=== PATIENT | female | born 1995 | race Caucasian/White ===

== ENCOUNTER → 2018-04-02 10:31 | Outpatient (CLI) | payer OTHER, SELFPAY | PROVIDERS: Family Provider Family Medicine; PCP Family Medicine; Visit Provider Physician Assistant | DX: R39.9 Unspecified symptoms and signs involving the genitourinary system (principal) | CPT/HCPCS: 87077; 87086; 87186 ==

== ENCOUNTER → 2019-06-25 15:47 | Outpatient (CLI) | payer OTHER, SELFPAY ==
--- NOTE | 2019-06-25 | DI.US.S_ITS ---
PROCEDURE: US PELVIC COMPLETE INDICATIONS: ABDOMINAL PAIN AND BLOATING TECHNIQUE: Real-time scanning was performed of the pelvic organs, with image documentation. The patient could not tolerate the transvaginal probe. COMPARISON: None. FINDINGS: Transabdominal scanning: Limited scanning through the kidneys shows no hydronephrosis. No pathologic free abdominal or pelvic fluid. Endovaginal scanning: Uterus: Uterus is normal in size at 5.9 x 4.2 x 20 cm. The endometrial stripe is not well seen. Ovaries: The right ovary measures 2.5 x 1.4 x 1.4 cm. The left ovary measures 2 x 1.4 x 1.4 cm. The ovaries have a normal sonographic appearance. No adnexal masses are seen. IMPRESSION: Limited study demonstrating no masses. Dictated by: Bright Storey M.D. on 06/25/2019 at 16:16 Approved by: Bright Storey M.D. on 06/25/2019 at 16:17
== END ==
PROVIDERS: Family Provider Family Medicine; PCP Family Medicine; Referring Provider Family Medicine; Visit Provider Family Medicine
DX: R10.9 Unspecified abdominal pain (principal); R14.0 Abdominal distension (gaseous)
CPT/HCPCS: 76856

== ENCOUNTER → 2019-06-26 11:23 | Outpatient (CLI) | payer OTHER, SELFPAY ==
--- NOTE | 2019-06-26 | DI.US.S_ITS ---
PROCEDURE: US ABDOMEN COMPLETE INDICATIONS: ABDOMINAL PAIN TECHNIQUE: Real-time scanning was performed of the abdominal and retroperitoneal organs, with image documentation. COMPARISON: [facility], US, US PELVIC COMPLETE, 06/25/2019, 16:06. FINDINGS: Liver: Liver is normal in size and homogeneous in echotexture. A 7 mm echogenic focus can be seen within the left lobe of the liver. Gallbladder: No findings of gallstones or sludge are seen. The gallbladder wall is not thickened, measuring 3 mm or less. No specific pericholecystic fluid is seen. The sonographic Ferrer sign is negative. Biliary ducts: Intrahepatic bile ducts are non-dilated. Extrahepatic bile duct caliber measures 3 mm. Normal is 6-7 mm or less in diameter, or 10 mm or less post-cholecystectomy. Pancreas: Visualized portions of the pancreas are sonographically normal. Spleen: Spleen is normal in size and homogeneous in echotexture. Kidneys: Kidneys are normal in size and echotexture. Right kidney measures 10.5 cm long; left kidney measures 11.2 cm long. No hydronephrosis. There is an apparent nonobstructing 3-4 mm stone seen within the right kidney superiorly. No solid masses. Aorta: Visualized aorta is normal in caliber at less than 3 cm. Iliacs: Not seen. IVC: Intrahepatic inferior vena cava is patent. Miscellaneous: No free abdominal fluid. IMPRESSION: The gallbladder demonstrates a normal sonographic appearance. No biliary dilatation is seen. Likely 7 mm liver hemangioma. Apparent nonobstructing right renal stone. Dictated by: Bright Storey M.D. on 06/26/2019 at 12:35 Approved by: Bright Storey M.D. on 06/26/2019 at 12:36
== END ==
PROVIDERS: Family Provider Family Medicine; PCP Family Medicine; Referring Provider Family Medicine; Visit Provider Family Medicine
DX: R10.9 Unspecified abdominal pain (principal); N20.0 Calculus of kidney
CPT/HCPCS: 76700

== ENCOUNTER → 2019-06-29 16:25 | Outpatient (CLI) | payer OTHER, SELFPAY ==
[2019-06-29 18:31] LABS: C-Reactive Protein Quant < 0.5 mg/dL (<1.0)
[2019-06-29 18:34] LABS: Erythrocyte Sedimentation Rate 3 MM/HR (0-20)
[2019-06-29 18:45] LABS: Thyroid Stimulating Hormone 3.74 uIU/mL (0.47-4.68)
== END ==
PROVIDERS: Family Provider Family Medicine; PCP Family Medicine; Referring Provider Family Medicine; Visit Provider Family Medicine
DX: R10.9 Unspecified abdominal pain (principal)
CPT/HCPCS: 36415; 84443; 85651; 86140